=== PATIENT | female | born 1965 | race Caucasian/White ===

== ENCOUNTER 2018-11-25 07:00 | Day surgery (SDC) | payer BC ==
[~2018-11-25] VITALS: Ht 157.5 cm; Wt 61.7 kg
[2018-11-25 07:59] LABS: BASOPHILS % (AUTO) 0.6 % (0.0-2.0); EOSINOPHILS # (AUTO) 0.1 K/uL (0.0-0.4); EOSINOPHILS % (AUTO) 2.5 % (0.0-4.0); HEMATOCRIT 37.3 % (36-48); HEMOGLOBIN 12.8 g/dL (12.0-16.0); LYMPHOCYTES # (AUTO) 1.4 K/uL (1.0-5.5); LYMPHOCYTES % (AUTO) 32.2 % (20.5-51.5); MEAN CORPUSCULAR HEMOGLOBIN 33 pg (27-31); MEAN CORPUSCULAR HGB CONC 34 % (32-36); MEAN CORPUSCULAR VOLUME 95 fL (79.0-98.0); MONOCYTES # (AUTO) 0.4 K/uL (0.0-1.0); MONOCYTES % (AUTO) 9.6 % (1.7-9.3); NEUTROPHILS # (AUTO) 2.4 K/uL (1.8-7.7); NEUTROPHILS % (AUTO) 55.1 % (40.0-70.0); PLATELET COUNT (AUTO) 218 K/uL (130-430); RED BLOOD CELL COUNT(AUTO) 3.93 MIL/uL (4.2-6.2); RED CELL DISTRIBUTION WIDTH 12.5 % (9.0-15.0); WHITE BLOOD COUNT (AUTO) 4.4 K/uL (4.8-10.8)
[2018-11-25] MEDS ORDERED: CEFAZOLIN 2 GM IVPB PREMIX 50 ML IV ONE (08:15)
[2018-11-25] MEDS ORDERED: SEVOFLURANE 15 MIN GAS INH ONE (08:17)
[2018-11-25] MEDS ORDERED: PROPOFOL 200MG/ 20ML VIAL (DIPRIVAN) IV ONE (08:17)
[2018-11-25] MEDS ORDERED: NS IRRIG SOLN 1000 ML IR ONE (08:17)
[2018-11-25] MEDS ORDERED: MIDAZOLAM HCL 5 MG/5 ML VIAL IVP ONE (08:17)
[2018-11-25] MEDS ORDERED: fentaNYL CITRATE/PF 100 MCG/2 ML AMP IVP ONE (08:17)
[2018-11-25] MEDS ORDERED: NS 1000 ML IV.SOLN IV ONE (08:17)
[2018-11-25] MEDS ORDERED: ONDANSETRON HCL 4 MG/2 ML VIAL IM PRN (08:30)
[2018-11-25] MEDS ORDERED: OXYCODONE/ACETAMINOPHEN 5-325 TABLET PO PRN (08:30)
[2018-11-25] MEDS ORDERED: HYDROcodone/ACETAMIN 5-325 MG TAB (NORCO/ VICODIN) PO PRN (08:30)
[2018-11-25] MEDS ORDERED: KETOROLAC TROMETHAMINE 30 MG VIAL IVP PRN (08:45)
[2018-11-25] MEDS ORDERED: ONDANSETRON HCL 4 MG/2 ML VIAL IVP PRN (08:45)
[2018-11-25] MEDS ORDERED: fentaNYL CITRATE/PF 100 MCG/2 ML AMP IVP PRN ×2 (08:45)
[2018-11-25] MEDS ORDERED: KETOROLAC TROMETHAMINE 30 MG VIAL ONE (09:27)
[2018-11-25] MEDS ORDERED: fentaNYL CITRATE/PF 100 MCG/2 ML AMP ONE (09:34)
[2018-11-25 10:17] VITALS: BP_SYST 111
[2018-11-25] MEDS ORDERED: OXYCODONE/ACETAMINOPHEN 5-325 TABLET ONE (10:29)
== END 2018-11-25 12:35 | disposition home or self-care (01) ==
LOC: SMU 07:00 → SDS 07:00
PROVIDERS: ATTEND Specialist
DX: N84.1 Polyp of cervix uteri (principal); N93.8 Other specified abnormal uterine and vaginal bleeding; N88.8 Other specified noninflammatory disorders of cervix uteri; Z96.649 Presence of unspecified artificial hip joint; M48.02 Spinal stenosis, cervical region; Z98.890 Other specified postprocedural states; Z79.899 Other long term (current) drug therapy
CPT/HCPCS: 36415; 57500; 58558; 85025; 88305; J0690; J1885; J2250; J2704; J3010; J7030

== ENCOUNTER 2023-02-23 11:41 | Emergency (ER) | payer BC ==
[~2023-02-23] VITALS: Ht 157.5 cm; Wt 66.2 kg
[2023-02-23 11:43] VITALS: BP_SYST 153; PULSE 80; RESP 18; TEMP 98.3; O2SAT 99
[2023-02-23 13:17] LABS: BILIRUBIN,URINE NEGATIVE (NEGATIVE); BLOOD, URINE NEGATIVE (NEGATIVE); CLARITY/URINE CLEAR (CLEAR); COLOR,URINE YELLOW (YELLOW); GLUCOSE,URINE NEGATIVE (NEGATIVE); KETONES,URINE NEGATIVE (NEGATIVE); LEUKOCYTE ESTERASE ,URINE NEGATIVE (NEGATIVE); NITRITE, URINE NEGATIVE (NEGATIVE); PH,URINE 7.5 (5.0-8.0); PROTEIN URINE NEGATIVE (NEGATIVE); UROBILINOGEN,URINE 0.2 (0.2-1.0)
[2023-02-23] MEDS: KETOROLAC TROMETHAMINE 30 MG VIAL IM ONE (13:25)
[2023-02-23] MEDS ORDERED: METH-776 PO (14:29)
[2023-02-23] MEDS ORDERED: NABU-140 PO (14:29)
[2023-02-23 15:02] VITALS: BP_SYST 153; PULSE 80; RESP 18; TEMP 98.3; O2SAT 99
== END 2023-02-23 15:01 | disposition home or self-care (01) ==
LOC: SED 11:41
DX: M54.16 Radiculopathy, lumbar region (principal); Z79.899 Other long term (current) drug therapy
CPT/HCPCS: 99285; 72131; 81001; 76376; 96372; 81003; J1885